=== PATIENT | female | born 1945 | race Caucasian/White ===

== ENCOUNTER 2016-09-07 09:20 | Outpatient (CLI) | payer OTHER, BC ==
[~2016-09-07 09:20] MED LIST: ATENOLOL25 MG PO; BENADRYL25 MG PO; CINNAMON500 MG PO; COPPER2 MG PO; COQ-10100 MG PO; DHA PO; DOCUSATE SODIU250 MG PO; EPIPEN 2-PAK0.3 MG IM; GABA PO; GAS-X EXTRA ST125 MG PO; GLIMEPIRIDE1 MG PO; GUAIFENESIN PO; HYDROCHLOROTHIA25 MG PO; IRON325 MG PO; LAMOTRIGINE100 MG PO; LEVOTHYROXINE112 MCG PO; LIOTHYRONINE SO5 MCG PO; MAGNESIUM250 M1 PO; MAGNESIUM500 M2 PO; METFORMIN HCL500 MG PO; OLANZAPINE2.5 MG PO; OXYBUTYNIN CHLOR5 MG PO; PRAVASTATIN SOD20 MG PO; PREMARIN TOP; VITAMIN A8000 UNI1; VITAMIN C500 M1 PO; VITAMIN D-31000 UNIT PO; ZESTRIL5 MG PO
--- NOTE | 2016-09-07 11:10 | DIAGNOSTIC IMAGING REPORT ---
PROCEDURE: MG BILATERAL SCREENING W/CAD INDICATION: Screening. Family history breast carcinoma (mother). TECHNIQUE: Bilateral CC and MLO digital views. COMPARISON: Compared to 09/05/2015, 09/18/2013, and 12/19/2008. FINDINGS: Computer-aided detection applied. Mildly dense with a few scattered dystrophic and micro calcifications. No change. IMPRESSION: 1. Negative mammogram. RESULT CODE: 1- Negative. A. A negative report should not delay biopsy if a dominant or clinically suspicious mass is present. 10-15% of cancers are not identified by x-ray. B. A negative report may reinforce clinical impression. C. Adenosis and dense breasts may obscure an underlying neoplasm. D. False positive reports average 6-10%. E.. A yearly screening mammogram is recommended. A reminder letter will be scheduled.
== END 2016-09-07 23:00 | disposition home or self-care (01) ==
LOC: MAM SRH 09:20
DX: Z12.31 Encounter for screening mammogram for malignant neoplasm of breast (principal); Z80.3 Family history of malignant neoplasm of breast